=== PATIENT | female | born 1955 | race Caucasian/White ===

== ENCOUNTER 2019-06-23 18:19 | Emergency (ER) | payer MEDICARE, BC, SELFPAY ==
[2019-06-23 18:20] VITALS: BP 159/110; PULSE 84; RESP 16; TEMP 36.1; BMI 22.4
--- NOTE | 2019-06-23 18:40 | ED.VISSUMM ---
- ER Visit Summary Date of Service: 06/23/19 Chief Complaint: Suicidal ideation History of Present Illness: The patient is a 63 F who presents with suicidal ideation that began today. Patient was pulled over by police for possible [place]. Patient then told police that she wanted to hurt her self. Patient told the police that she wanted them to just shoot her in the head. Currently, the patient states she was just joking with the police. Patient currently denies any suicidal ideations. Patient denies any chest pain. Patient states she does have some shortness of breath and a cough. Patient states this is due to her pacemaker. Physical Examination: Vital signs are stable except for slightly elevated blood pressure 159/110. Patient is afebrile. Patient is in no acute distress. Oral mucosa is pink and moist. Neck is supple. Trachea is midline. There is no JVD noted. Heart was regular rate and rhythm. Lungs are clear and equal bilaterally. Abdomen is soft. Bowel sounds are normal. There is no tenderness. There is no guarding noted. Skin is warm dry. Cranial nerves II through XII are intact. There are no focal motor or sensory deficits noted. Patient has a normal affect and mood. Patient denies any suicidal or homicidal ideations at the present time. Test Results: CBC and basic metabolic profile were obtained. Sodium was slightly low at 133 and potassium was 3.4. The remaining labs are within normal limits. Serum alcohol level was obtained and was elevated at 223. Urine tox screen was obtained and was normal. Emergency Department Course and Treatment: Police filled out a pink slip. Suicide precautions were maintained. Patient was observed here in the emergency department. Patient was reevaluated when she was clinically sober. Patient denies any suicidal or homicidal ideations at this time. I do not feel the patient is a danger to herself or others. Patient was instructed to follow-up with her primary care physician in 3 to 5 days. Patient understood and was agreeable with the plan. All questions were answered. Disposition: Discharge home Impression: 1. Alcohol intoxication 2. Depression This note was generated with Counter[employer] software. It may contain incorrect words, spelling, and punctuation that were not noted in review of the chart prior to signing ED Disposition - Plan for ED Patient: Disposition: Home or Assisted Living Diagnosis: Alcohol intoxication, Depression Instructions: Alcohol Intoxication, CONTRACT, No Harm, Depression Referrals: Fany Mejia [Primary Care Provider] - 3-5 Days
[2019-06-23 19:09] LABS: Absolute Lymphocyte Count 1.63 X10^3/uL (0.83-4.51); Absolute Neutrophil Count 2.5 X10^3/uL (2.0-7.7); Basophil# 0.04 X10^3/uL; Basophil% 0.8 % (0-1); Eosinophil# 0.09 X10^3/uL; Eosinophils% 1.9 % (0-5); Hematocrit 41.2 % (37-47); Hemoglobin 14.1 g/dL (12.0-15.0); Lymphocyte # 1.63 X10^3/ul (4.0); Lymphocyte % 34.2 % (19-41); Mean Corp Hgb Conc 34.2 g/dL (32-36); Mean Corpuscular Hgb 33.3 pg (27.0-32.0); Mean Corpuscular Volume 97.4 fL (81-99); Mean Platelet Vol. 8.2 fl (6.2-12.0); Monocyte# 0.52 X10^3/uL; Monocyte% 10.9 % (0-10); NRBC Flagged by Analyzer 0 % (0-5); Neutrophil # 2.46 X10^3/uL (2.7-7.7); Neutrophil % 51.6 % (47-70); Platelet Count 199 K/mm3 (150-450); RBC Distribution Width CV 11.6 % (11.6-14.6); RBC Distribution Width SD 41.7 fl (35.1-43.9); Red Blood Count 4.23 M/mm3 (4.2-5.4); White Blood Count 4.8 K/mm3 (4.4-11.0)
[2019-06-23 19:14] LABS: Amphetamine Urine VISTA NEGATIVE (<1000 ng/mL); Barbiturate Urine VISTA NEGATIVE (< 200 ng/mL); Benzodiazepine Urine VISTA NEGATIVE (< 200 ng/mL); Cocaine Urine VISTA NEGATIVE (< 300 ng/mL); Ecstacy Urine VISTA NEGATIVE (< 500 ng/mL); Methadone Urine VISTA NEGATIVE (< 300 ng/mL); PCP Urine VISTA NEGATIVE (< 25 ng/mL); THC Urine VISTA NEGATIVE (< 50 ng/mL); Vista UDS pH Range 5
[2019-06-23 19:23] LABS: Anion Gap 10 (5-15); BUN 10 mg/dL (7-18); BUN/Creat Ratio 19.1 RATIO (10-20); Calcium,Total 8.5 mg/dL (8.5-10.1); Chloride 99 mmol/L (98-107); Creatinine, Serum 0.52 mg/dL (0.55-1.02); EST Glomerular Filtration Rate 124 mL/min (>60); Est Glom Filt Rate - Afr Amer 150 mL/min (>60); Estimated Creatinine Clearance 89.22 ml/min; Glucose 103 mg/dL (74-106); Potassium 3.4 mmol/L (3.5-5.1); Sodium Level 133 mmol/L (136-145)
[2019-06-23 20:00] VITALS: RESP 16
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
[2019-06-23 21:00] VITALS: BP 150/85; PULSE 79; RESP 16; O2SAT 97
[2019-06-23 23:00] VITALS: BP 149/81; PULSE 79; RESP 14; O2SAT 97
[2019-06-24 00:14] VITALS: RESP 14
[2019-06-24 00:31] VITALS: BP 147/103; PULSE 105; RESP 16; O2SAT 97
== END 2019-06-24 01:49 | disposition home or self-care (01) ==
PROVIDERS: Emergency Provider Emergency Medicine; Family Provider Family Medicine; PCP Family Medicine
DX: F10.129 Alcohol abuse with intoxication, unspecified (principal); F32.9 Major depressive disorder, single episode, unspecified; Z95.0 Presence of cardiac pacemaker; Y90.7 Blood alcohol level of 200-239 mg/100 ml; R06.02 Shortness of breath; R05 Cough
CPT/HCPCS: 36415; 80048; 80307; 80320; 85025; 99283; G0480

== ENCOUNTER 2023-05-07 17:22 | Emergency (ER) | payer MEDICARE, BC, SELFPAY ==
[2023-05-07] VITALS (9 sets, daily range): BP systolic 128–147; BP diastolic 63–82; PULSE 75–85; RESP 14–18; TEMP 35.6; O2SAT 95–97; BMI 21.5
[2023-05-07] MEDS: Ondansetron 4 MG/2 ML Vial IV ×2 (17:32→19:46)
--- NOTE | 2023-05-07 17:32 | CT_ITS ---
We are attempting to reach an attending provider to discuss findings. An addendum with communication details will be sent when the communication is complete. EXAM: CT HEAD WITHOUT INTRAVENOUS CONTRAST CLINICAL INDICATION: fall TECHNIQUE: Multiple axial images were obtained of the head without intravenous contrast. This CT exam was performed using one or more of the following dose reduction techniques: automated exposure control, adjustment of the mA and/or kV according to patient size, and/or use of iterative reconstruction technique. COMPARISON: No relevant prior studies available. FINDINGS: BRAIN AND EXTRA-AXIAL SPACES: There is a density extra-axial collection along the left frontal and temporal lobes compatible with a subdural hematoma that measures 7 mm in greatest diameter. There is no midline shift. There is no intraparenchymal or subarachnoid hemorrhage identified. No evidence of acute infarct. There is preservation of the lemos/white matter interface. Posterior fossa structures are unremarkable. Ventricles are appropriate for age. No hydrocephalus. Basal cisterns are patent. BONES/JOINTS: Unremarkable. No discrete lytic or blastic abnormalities. SINUSES: Unremarkable as visualized. Clear. MASTOID AIR CELLS: Unremarkable. Clear. ORBITS: Visualized globes, extraocular muscles, optic nerves and retrobulbar fat appear unremarkable. CT/Brain/Head without Contrast IMPRESSION: Left-sided frontal and temporal subdural hematoma. There is no mass effect or shift. There is no intraparenchymal or subarachnoid hemorrhage. Electronically Signed: Moe Holt MD at 18:10 EDT ,
--- NOTE | 2023-05-07 17:32 | CT_ITS ---
EXAM: CT CERVICAL SPINE WITHOUT INTRAVENOUS CONTRAST CLINICAL INDICATION: fall TECHNIQUE: Helically acquired images were obtained of the cervical spine without intravenous contrast. 2D reformatted images were reviewed. This CT exam was performed using one or more of the following dose reduction techniques: automated exposure control, adjustment of the mA and/or kV according to patient size, and/or use of iterative reconstruction technique. COMPARISON: No relevant prior studies available. FINDINGS: VERTEBRAE: Unremarkable. No fracture. No traumatic subluxation. No discrete lytic or blastic abnormality. Normal alignment. Normal craniocervical junction and cervicothoracic junction. DISCS/SPINAL CANAL/NEURAL FORAMINA: Unremarkable. Disc heights are preserved. No critical stenosis. SOFT TISSUES: Unremarkable. No prevertebral soft tissue swelling. LYMPH NODES: Unremarkable. No cervical adenopathy. LUNG APICES: Unremarkable as visualized. Clear. CT/Spine Cervical without Contras IMPRESSION: No evidence of acute cervical spinal fracture or spondylolisthesis. Electronically Signed: Moe Holt MD at 18:11 EDT ,
--- NOTE | 2023-05-07 17:33 | EKG12_ITS ---
Test Reason : Blood Pressure : / mmHG Vent. Rate : 076 BPM Atrial Rate : 076 BPM P-R Int : 194 ms QRS Dur : 166 ms QT Int : 480 ms P-R-T Axes : 065 -80 082 degrees QTc Int : 540 ms Atrial-sensed ventricular-paced rhythm Abnormal ECG Confirmed by NAIN PYLE ([id number]), business editor LAKIA KOO ([id number]) on 05/21/2023 10:55:35 AM Referred By: Confirmed By:NAIN PYLE
--- NOTE | 2023-05-07 17:35 | NURSING ---
NO OLD EKGS
--- NOTE | 2023-05-07 17:37 | RAD_ITS ---
EXAM: XR CHEST, 1 VIEW CLINICAL INDICATION: cough TECHNIQUE: Frontal view of the chest. COMPARISON: No relevant prior studies available. FINDINGS: LUNGS AND PLEURAL SPACES: Unremarkable. No consolidation or edema. No pneumothorax. No effusion. HEART: Unremarkable. Cardiac silhouette not enlarged. MEDIASTINUM: Central airways and mediastinal contour are unremarkable. BONES/JOINTS: Unremarkable. SOFT TISSUES: Unremarkable. TUBES, LINES AND DEVICES: Left-sided pacemaker is in good position. RAD/Chest 1 View (Portable) IMPRESSION: No acute findings in the chest. Electronically Signed: Moe Holt MD at 18:06 EDT ,
[2023-05-07] MEDS: 0.9% Normal Saline 1,000 ML 1000 ML IV (17:40)
[2023-05-07 17:53] LABS: Absolute Lymphocyte Count 2.64 X10^3/uL (0.83-4.51); Absolute Neutrophil Count 3.2 X10^3/uL (2.0-7.7); Basophil# 0.04 X10^3/uL; Basophil% 0.6 % (0-1); Eosinophil# 0.09 X10^3/uL; Eosinophils% 1.4 % (0-5); Hematocrit 33.2 % (37-47); Hemoglobin 11.2 g/dL (12.0-15.0); Lymphocyte # 2.64 X10^3/ul (0.83-4.51); Lymphocyte % 40.6 % (19-41); Mean Corp Hgb Conc 33.7 g/dL (32-36); Mean Corpuscular Hgb 32.8 pg (27.0-32.0); Mean Corpuscular Volume 97.4 fL (81-99); Mean Platelet Vol. 8.7 fl (6.2-12.0); Monocyte# 0.51 X10^3/uL; Monocyte% 7.8 % (0-10); NRBC Flagged by Analyzer 0 % (0-5); Neutrophil # 3.17 X10^3/uL (2.7-7.7); Neutrophil % 48.7 % (47-70); Platelet Count 250 K/mm3 (150-450); RBC Distribution Width CV 12.4 % (11.6-14.6); RBC Distribution Width SD 44.6 fl (35.1-43.9); Red Blood Count 3.41 M/mm3 (4.2-5.4); White Blood Count 6.5 K/mm3 (4.4-11.0)
[2023-05-07 18:08] LABS: Anion Gap 8 (5-15); BUN 18 mg/dL (7-18); BUN/Creat Ratio 26.7 RATIO (10-20); Calcium,Total 8.3 mg/dL (8.5-10.1); Chloride 102 mmol/L (98-107); Creatinine, Serum 0.68 mg/dL (0.55-1.02); EST Glomerular Filtration Rate 92 mL/min (>60); Est Glom Filt Rate - Afr Amer 111 mL/min (>60); Estimated Creatinine Clearance 43.92 ml/min; Glucose 100 mg/dL (74-106); Lipase 69 U/L (13-75); Potassium 3.7 mmol/L (3.5-5.1); Sodium Level 134 mmol/L (136-145)
--- NOTE | 2023-05-07 18:13 | NURSING ---
CALLED [facility] FOR TRANSFER
[2023-05-07 18:18] LABS: CPK Total, Creatine Kinase 70 U/L (26-192)
[2023-05-07 18:25] LABS: Mucous, Urine 0 SEEN /hpf (<or=2+); Squamous Epithelial Cells - UA 0 SEEN /hpf (5-10)
[2023-05-07 18:27] LABS: Color, Urine Yellow (Yellow); Glucose, Dipstick Normal (Normal); Ketone-Dipstick Negative (Negative); Leukocyte Esterase-Dipstick 500 /ul (Negative); Nitrite-Dipstick Negative (Negative); Occult Blood-Urine 25 /ul (Negative); Protein-Dipstick 15 mg/dl (Negative); Specific Gravity, Urine 1.015 (1.002-1.030); Urine Bilirubin Dipstick Negative (Negative); Urine Clarity Clear (Clear); Urine Urobilinogen Normal (Normal)
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
[2023-05-07 18:35] LABS: Bacteria 1+ /hpf (None Seen); Red Blood Cells-Urine 0-5 SEEN /hpf (0-5); White Blood Cells 5-10 SEEN /hpf (0-5)
--- NOTE | 2023-05-07 19:08 | ED.RN ---
Report called to Danii TELLEZ at [facility].
[2023-05-07] MEDS: Ceftriaxone 1 GM/50 ML BAG IV (19:10)
== END 2023-05-07 20:25 | disposition short-term general hospital (02) ==
PROVIDERS: Nurse Practitioner; Emergency Provider Emergency Medicine; PCP Nurse Practitioner Family; Visit Provider Emergency Medicine
DX: I62.01 Nontraumatic acute subdural hemorrhage (principal); F10.129 Alcohol abuse with intoxication, unspecified; N39.0 Urinary tract infection, site not specified; Z95.0 Presence of cardiac pacemaker; W19.XXXA Unspecified fall, initial encounter; S09.8XXA Other specified injuries of head, initial encounter; R41.82 Altered mental status, unspecified; Y90.6 Blood alcohol level of 120-199 mg/100 ml; R11.0 Nausea
CPT/HCPCS: 70450; 71045; 72125; 80048; 81001; 82077; 82550; 83690; 85025; 87077; 87086; 87088; 87186; 93005; 96361; 96365; 96375; 99285; A4216; J2405